=== PATIENT | female | born 1975 | race Caucasian/White ===

== ENCOUNTER → 2023-08-05 06:29 | Day surgery (SDC) | payer BC, SELFPAY | LOC: GI 06:29 | PROVIDERS: ATTENDING PHYSICIAN Internal Medicine Gastroenterology | DX: K52.9 Noninfective gastroenteritis and colitis, unspecified (principal); R19.7 Diarrhea, unspecified; R19.4 Change in bowel habit; K44.9 Diaphragmatic hernia without obstruction or gangrene; R12 Heartburn; R63.4 Abnormal weight loss | CPT/HCPCS: 45380; 43239; 88305 ==

== ENCOUNTER → 2023-10-30 09:56 | Outpatient (REF) | payer BC, SELFPAY | LOC: HWRAD 09:56 | PROVIDERS: ATTENDING PHYSICIAN Nurse Practitioner Family | DX: R59.1 Generalized enlarged lymph nodes (principal) | CPT/HCPCS: 76536 ==

== ENCOUNTER → 2023-11-03 07:30 | Outpatient (REF) | payer BC, SELFPAY | LOC: HWRAD 07:30 | PROVIDERS: ATTENDING PHYSICIAN Nurse Practitioner Family | DX: F17.210 Nicotine dependence, cigarettes, uncomplicated (principal) | CPT/HCPCS: 71271 ==

== ENCOUNTER 2023-11-09 08:06 | Emergency (ER) | payer BC, SELFPAY ==
[2023-11-09 08:09] VITALS: BP 134/82
[2023-11-09 08:55] VITALS: BMI 25.1
--- NOTE | 2023-11-09 09:30 | ED.GENMED ---
History of Present Illness
General
Chief Complaint: Back Pain
Time Seen by Provider: 11/09/23 08:28
History of Present Illness
History of Present Illness:
48-year-old female presents the emergency department for evaluation of left-sided thoracic back pain that began this morning. She notes vague back pain was present last night before bed but the pain today was much more significant. Denies any
fevers, chills, sweats, dysuria, hematuria. The pain is constant but has improved after taking a dose of ibuprofen this morning. No history of trauma. States that whenever she twists the torso the pain gets worse. No pleuritic pain. No anterior
chest pain.
Past History
Past History
ED Past Medical History: None
ED Past Surgical History: None
Social History
Tobacco: Smoker
Personal:
Review of Systems
Review of Systems
Allergies reviewed?: Yes
All Other Systems: ROS reviewed and negative except as documented in HPI and ROS
Phy Exam
Physical Exam
Physical Exam:
GEN: Well appearing, NAD, WDWN
HEENT: Oral mucosa moist, no scleral icterus
Cardiac: Regular rate
Lung: No respiratory distress, no tachypnea, lungs clear to auscultation
MSK: Mild tenderness elicited to the left thoracic back paraspinous musculature, the pain is superior medial to the renal area. There does appear to be diffuse swelling and asymmetry involving the left latissimus muscle. Range of motion of the
upper extremities is normal bilaterally. No CVA tenderness to percussion
Skin: Good color, no pallor or jaundice, no rashes
Neuro: AO x3, moves all extremities freely
Psych: Calm, cooperative
Course
Orders/Labs/Results
Orders:
Orders
11/09/23 09:58
Urinalysis Reflex To Culture Urgent
Date Specimen was Collected: 11/09/23
Time Specimen was Collected: 08:53
Vital Signs
Initial and Last Documented VS:
Initial Vital Signs
Temp Pulse Resp BP Pulse Ox
98.2 F 68 16 134/82 98
11/09/23 08:09 11/09/23 08:09 11/09/23 08:09 11/09/23 08:09 11/09/23 08:09
Last Documented Vital Signs
Temp Pulse Resp BP Pulse Ox
98.2 F 54 18 126/73 98
11/09/23 08:09 11/09/23 11:03 11/09/23 11:03 11/09/23 11:03 11/09/23 11:03
MDM/Problems Addressed
MDM/Problems Addressed:
Urinalysis is bland. Highly likely this represents a musculoskeletal etiology. Discussed supportive care. No indication for imaging
*Critical Care Note
Total Time (30-74mins, 75-104mins- exclusive of procedures): Not Applicable
ED Attending Note
-
Portions of this chart may have been created with voice recognition software.� Occasional wrong word or��sound alike� substitutions may have occurred due to the inherent limitations of voice recognition software.
Discharge Plan
Departure
Patient Disposition: Home (Routine Discharge)
Date of Disposition: 11/09/23
Time of Disposition: 10:40
Patient with high blood pressure during this ER visit?: No
Discharge Problem:
Back pain, thoracic
Instructions: Upper Back Pain (DC)
Prescriptions:
No Action
No Current Medications
0
Referrals:
Mariana De La Paz CRNP [Family Provider] -
Interventions
Interventions:
*Risk Screen - Suicide Last Done: 11/09/23 08:09
*General Assessment Last Done: 11/09/23 08:55
*Neglect/Abuse Screening Last Done: 11/09/23 08:55
ED- Fall Risk Assessment Last Done: 11/09/23 08:55
*ED COVID-19 Vaccine History Last Done: 09/16/24 08:55
*Nursing Disposition Last Done: 11/09/23 11:04
ED-Musculoskeletal Assessment Last Done: 11/09/23 08:55
Discharge Date and Time
Discharge Date/Time: 11/09/23 11:04
Print Language: PASHTO
[2023-11-09 10:36] LABS: Urine Albumin Negative (Neg - Trace); Urine Bilirubin Negative (Negative); Urine Character Clear (Clear); Urine Color Yellow; Urine Glucose Negative (Negative); Urine Ketone Negative (Negative); Urine Leukocyte Negative (Negative); Urine Nitrite Negative (Negative); Urine Occult Blood Negative (Negative); Urine Urobilinogen Negative (Neg - 1+)
[2023-11-09 11:02] VITALS: BP 126/73
[2023-11-09 11:03] VITALS: BP 126/73
== END 2023-11-09 11:04 | disposition home or self-care (01) ==
LOC: EMR 08:06
PROVIDERS: Physician Assistant; EMERGENCY PHYSICIAN Emergency Medicine; FAMILY PHYSICIAN Nurse Practitioner Family
DX: M54.6 Pain in thoracic spine (principal); F17.200 Nicotine dependence, unspecified, uncomplicated
CPT/HCPCS: 99282; 81003

== ENCOUNTER → 2024-03-22 10:27 | Outpatient (REF) | payer BC, SELFPAY | LOC: HWWDC 10:27 | PROVIDERS: ATTENDING PHYSICIAN Family Medicine; FAMILY PHYSICIAN Nurse Practitioner Family | DX: Z12.31 Encounter for screening mammogram for malignant neoplasm of breast (principal) | CPT/HCPCS: 77063; 77067 ==